=== PATIENT | male | born 1995 | race Hispanic/Latino ===

== ENCOUNTER 2023-08-28 02:34 | Emergency (ER) | payer OTHER ==
[2023-08-28] MEDS ORDERED: KETOROLAC 30 MG/ML INJ ONE (03:21)
[2023-08-28] MEDS ORDERED: ONDANSETRON 4 MG/2 ML VIAL ONE (03:21)
[2023-08-28] MEDS ORDERED: MORPHINE 4 MG/ML SYR ONE (03:22)
[2023-08-28] MEDS ORDERED: CEFAZOLIN SODIUM 1 GM/VIAL ONE (03:22)
[2023-08-28] MEDS ORDERED: NA CHLORIDE 0.9% 1,000 ML ONE (03:22)
[2023-08-28] MEDS ORDERED: NA CHLORIDE 0.9% 100 ML ONE (03:22)
[2023-08-28 03:47] LABS: Absolute Basophils 0.1 K/uL (0-0.5); Absolute Lymphocytes (CBC) 1.1 K/uL (0.7-4.9); Absolute Monocytes 1.3 K/uL (0.1-1.3); Absolute Neutrophil 17.9 K/uL (1.8-8.0); Basophils % 0.3 % (0-1.3); Eosinophils % 0.1 % (0-4.4); Hematocrit 44.3 % (39.6-49.0); Hemoglobin 14.5 g/dL (13.6-17.9); Lymphocytes % 5.5 % (15.3-44.8); MCH 30.1 pg (27.0-35.0); MCHC 32.8 g/dL (32.0-36.0); MCV 91.8 fL (80-100); Monocytes % 6.2 % (3.3-12.3); Neutrophils % 87.9 % (41.7-73.7); PT Prothrombin Time 10.7 SECONDS (9.5-12.5); Platelets 281 thou/uL (152-406); Protime INR 0.97; RBC Red Blood Cell Count 4.82 M/uL (4.33-5.43); Red Cell Distribution Width 13.5 % (12.1-15.2)
[2023-08-28 03:57] LABS: Albumin 4.5 g/dL (3.4-5.0); Albumin/Globulin Ratio 1.5 (1.1-1.8); Anion Gap 8.1 mEq/L (5.0-15.0); Bilirubin Direct 0.2 mg/dL (0-0.2); Bilirubin Indirect, Calculated 0.8 mg/dL (0.2-0.8); Globulin 3.1 g/dL (2.3-3.5); Potassium 4.1 mEq/L (3.5-5.1); Protein, Total 7.6 g/dL (6.4-8.2)
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
[2023-08-28 05:19] LABS: Band Neutrophils 3 % (0-1); Blood Morphology Comment NOT SEEN (NOT SEEN); Differential Total Cells Count 100; Eosinophils 1 % (0-3); Lymphocytes 5 % (15-42); Monocytes 8 % (0-10); Platelet Estimate ADEQ; Reactive Lymphocytes 2 %; Segmented Neutrophils 81 % (40-80)
[2023-08-28] MEDS ORDERED: TDAP (DIPHTH,PERTUSS(ACELL),TET VAC) 0.5 ML VIAL IMVAC ONE (05:21)
[2023-08-28 07:56] VITALS: BP 104/64; TEMP 98.8; O2SAT 99
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
== END 2023-08-28 07:26 | disposition short-term general hospital (02) ==
LOC: ER 02:34
DX: S02.651A Fracture of angle of right mandible, initial encounter for closed fracture (principal); S02.652A Fracture of angle of left mandible, initial encounter for closed fracture; S02.40DA Maxillary fracture, left side, initial encounter for closed fracture; S02.2XXA Fracture of nasal bones, initial encounter for closed fracture; S00.83XA Contusion of other part of head, initial encounter; Y04.8XXA Assault by other bodily force, initial encounter
CPT/HCPCS: 96365; 85025; 80048; 36415; 85610; 80076; 70450; 72125; 70486; 76377; 96375; 96372; 99285; 96366; J2405; J0690; J7030